=== PATIENT | male | born 1990 | race American Indian/Alaskan Native ===

== ENCOUNTER 2018-06-27 19:14 | Emergency (ER) | payer OTHER ==
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
--- NOTE | 2018-06-27 20:46 | XRay Report ---
PROCEDURE: XR KNEE 3V LT TECHNIQUE: Left knee 3 views HISTORY: left knee pain COMPARISONS: FINDINGS: No acute fracture or dislocation identified. Joint space is within normal limits Partially seen is an intramedullary maria eugenia with locking screws within the proximal tibia IMPRESSION: No acute abnormality identified. This document is electronically signed by Clyde Mejia MD., Jun 27 2018 08:45:14 PM ET
--- NOTE | 2018-06-27 20:57 | Cat Scan Report ---
PROCEDURE: CT HEAD/BRAIN WO CON TECHNIQUE: Computerized tomography of the head was performed without contrast material. CT DOSE LENGTH PRODUCT: 927.7 mGycm HISTORY: headache COMPARISONS: None . FINDINGS: Unenhanced CT of the brain was performed and demonstrates no acute intracranial hemorrhage, extra-axial fluid collection, midline shift or mass effect. The ventricles and basal cisterns are no t effaced. The mastoid air cells and middle ears appear clear. There is no evidence of acute sinusitis. IMPRESSION: No acute intracranial hemorrhage This document is electronically signed by Estevan Glez MD., Jun 27 2018 08:55:11 PM ET
--- NOTE | 2018-06-27 20:58 | Cat Scan Report ---
PROCEDURE: CT CERVICAL SPINE WO CON TECHNIQUE: Computerized tomography of the cervical spine was performed from the skull base to T1 wit hout contrast material. CT DOSE LENGTH PRODUCT: 575.6 mGycm HISTORY: neck pain COMPARISONS: None . FINDINGS: Unenhanced CT of the cervical spine was performed and data was reformatted in the sagittal and coronal planes. These images demonstrate no fracture or malalignment of the cervical spine prevertebral soft tissues are within normal limits. The intervertebral disc space heights appear preserved. The pulmonary apices appear clear. IMPRESSION: No fracture is seen in the cervical spine This document is electronically signed by Estevan Glez MD., Jun 27 2018 08:56:41 PM ET
[2018-06-28] MEDS ORDERED: PERCOCET 5/325 PO STA (00:03)
[2018-06-28] MEDS ORDERED: KEFLEX PO ONE (00:03)
[2018-06-28] MEDS ORDERED: BOOSTRIX IM ONE (00:03)
[2018-06-28] MEDS ORDERED: XYLOCAINE 2% INFILTRATI STA (00:03)
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
--- NOTE | 2018-06-28 02:40 | XRay Report ---
PROCEDURE: RIGHT HAND, 3 VIEWS TECHNIQUE: RIGHT hand radiographs, AP, lateral, and oblique views. CPT 33524 HISTORY: Pain COMPARISONS: None . FINDINGS: Fracture (s) and/or Dislocation(s): None . Alignment: Normal . Joint space(s): Normal . Soft tissues: Normal . Bone mineralization: Normal . Foreign bodies: None . IMPRESSION: Normal Examination . This document is electronically signed by Jeanmarie Butts MD., Jun 28 2018 02:38:49 AM ET
[2018-06-28 05:20] VITALS: BP 125/85
== END 2018-06-28 04:55 | disposition home or self-care (01) ==
LOC: ED 19:14
DX: S01.81XA Laceration without foreign body of other part of head, initial encounter (principal); S80.211A Abrasion, right knee, initial encounter; S60.229A Contusion of unspecified hand, initial encounter; V89.2XXA Person injured in unspecified motor-vehicle accident, traffic, initial encounter; Y93.89 Activity, other specified; Y92.488 Other paved roadways as the place of occurrence of the external cause; Y99.8 Other external cause status; J45.909 Unspecified asthma, uncomplicated
CPT/HCPCS: 70450; 72125; 90471; 90715; 99284

== ENCOUNTER 2018-07-12 10:51 | Emergency (ER) | payer SELFPAY ==
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
[2018-07-12 11:36] VITALS: BP 130/88
== END 2018-07-12 11:34 | disposition home or self-care (01) ==
LOC: ED 10:51
DX: S01.81XD Laceration without foreign body of other part of head, subsequent encounter (principal); J45.909 Unspecified asthma, uncomplicated; W26.8XXD Contact with other sharp object(s), not elsewhere classified, subsequent encounter